=== PATIENT | male | born 1935 | race Caucasian/White ===

== ENCOUNTER 2016-10-14 20:19 | Inpatient (IN) | payer OTHER ==
[~2016-10-14] VITALS: Ht 172.7 cm; Wt 89.3 kg
--- NOTE | ~2016-10-14 | EKG ---
[address] [address] ELECTROCARDIOGRAM REPORT Name: LUIS A CHACON Room #: 463-P ADM IN M.R.#: [id number] Admission: 10/14/16 Attend Phys: Arabella Hayes Discharge: Date of : 35 Report #: [id number] THIS REPORT FOR: //name// [facility] ED Test Date: 2016-10-14 Test Time: 21:18:31 Pat Name: LUIS A CHACON Department: Room: 463 Gender: M Chief Gauger: JORGE L : 1935 Requested By: Lucia Wilder Order Number: [id number] MD: Arnel Valerio Measurements Intervals [place] Rate: 127 P: CT: QRS: -37 QRSD: 105 T: 153 QT: 341 QTc: 496 Interpretive Statements Atrial fibrillation Ventricular premature complex Left axis deviation Abnormal T, consider ischemia, lateral leads Electronically Signed On 10-17-2016 8:32:15 CDT by Arnel Valerio [email or web address] <ELECTRONICALLY SIGNED> By: Arnel Valerio MD 10/17/16 0832 2118 MD CY Inman
--- NOTE | ~2016-10-14 | 2DMMODE ---
[facility] [address] [facility] [place] [address] 2 D/M-MODE ECHOCARDIOGRAM Name: LUIS A CHACON Room #: 463-P [facility] IN ..#: [id number] Admission: 10/14/16 Attend Phys: Arabella Kingsley Discharge: Date of : 35 Date of Service: 10/20/16 1626 Report #: [id number] THIS REPORT FOR: //name// APPROVED REPORT Study performed: 10/20/2016 12:23:10 EXAM: Comprehensive 2D, Doppler, and color-flow Echocardiogram Patient Location: Bedside Room #: 463 Blood Pressure: 121/71 mmHg Other Information Study Quality: Good Indications Diabetes Atrial Fibrillation CAD Hypertension/HDD 2D Dimensions RVDd: 34.75 mm LVEF(%): 42.16 (>50%) IVSd: 14.48 (7-11mm) LVOT Diam: 23.09 (18-24mm) LVDd: 45.69 mm PWd: 13.49 (7-11mm) Ascending Ao: 26.67 (22-36mm) LVDs: 36.27 (25-40mm) Aortic Root: 25.93 mm IVC: 23.00 mm Hamilton's LVEF: 42.16 % Volumes Left Atrial Volume (Systole) Single Plane 4CH: 67.13 mL Single Plane 2CH: 72.76 mL LA ESV Index: 37.00 mL/m2 Aortic Valve AoV Peak Rizwan.: 1.85 m/s AO Peak Gr.: 13.62 mmHg LVOT Max P.92 mmHg LVOT Max V: 0.99 m/s LETICIA Vmax: 2.24 cm2 Mitral Valve [facility] [address] [place] [address] 2 D/M-MODE ECHOCARDIOGRAM Name: LUIS A CHACON Antonio Room #: 463-P ADM IN ..#: [id number] Admission: 10/14/16 Attend Phys: Arabella Kingsley Discharge: Date of : 35 Date of Service: 10/20/16 1626 Report #: [id number] MV Decel. Time: 260.19 ms MV E Max Rizwan.: 0.80 m/s Pulmonary Valve PV Peak Rizwan.: 1.02 m/s PV Peak Gr.: 4.18 mmHg Tricuspid Valve RAP Estimate: 10.00 mmHg Left Ventricle The left ventricle is normal size. Mild concentric left ventricular hypertrophy. LVEF is 50%. This study is not technically sufficient to allow evaluation of the LV diastolic function due to atrial fibrillation. Right Ventricle The right ventricle is normal size. The right ventricular systolic function is normal. Atria Left atrium is mildly dilated. Interatrial septum not well visualized. Right atrium is mildly dilated. Aortic Valve The aortic valve is normal in structure. No aortic regurgitation is present. There is no aortic valvular stenosis. Mitral Valve The mitral valve is normal in structure. Trace mitral regurgitation. No evidence of mitral valve stenosis. Tricuspid Valve The tricuspid valve is normal in structure. Trace tricuspid regurgitation. Pulmonic Valve The pulmonary valve is normal in structure. Trace to mild pulmonic regurgitation. Great Vessels The aortic root is normal in size. The ascending aorta is normal in size. Aortic arch is not visualized. IVC is slightly dilated and appears to collapse with normal respirations. <Conclusion> The left ventricle is normal size. [facility] [place] [place] [address] 2 D/M-MODE ECHOCARDIOGRAM Name: LUIS A CHACON Room #: 463-P [facility] IN M.R.#: [id number] Admission: 10/14/16 Attend Phys: Arabella Kingsley Discharge: Date of : 35 Date of Service: 10/20/161625 Report #: [id number] Mild concentric left ventricular hypertrophy. LVEF is 50%. Left atrium is mildly dilated. Right atrium is mildly dilated. The aortic valve is normal in structure. The mitral valve is normal in structure. Trace mitral regurgitation. The tricuspid valve is normal in structure. The pulmonary valve is normal in structure. Trace to mild pulmonic regurgitation. <ELECTRONICALLY SIGNED> By: Bebeto Mena MD 10/20/161625 25 1626 Bebeto Mena MD /INF
--- NOTE | ~2016-10-14 | H ---
[facility] [place] [address] HISTORY AND PHYSICAL Name: OSWALDOLUIS A Room #: 463-P [facility] IN M.R.#: [id number] Admission: 10/14/16 Attend Phys: Arabella Hayes Discharge: Date of : 35 Report #: [id number] THIS REPORT FOR: //name// CC: Arabella Acosta Abraham DATE OF SERVICE: 10/14/2016 ATTENDING PHYSICIAN: Arabella Hayes M.D. PRIMARY CARE PHYSICIAN: Alexandra Brownlee M.D. CHIEF COMPLAINT: Hip pain. HISTORY OF PRESENT ILLNESS: The patient is an 81-year-old male with advanced dementia who lives at [facility]. Apparently, he had a fall yesterday and landed on his right hip, but was able to get up and ambulate to dinner. After dinner, they tried to have him stand up, and he could not walk and was grimacing. He is mostly nonverbal. An x-ray was done at the facility, which showed a right hip fracture, so he was brought into the ER. This was a witnessed fall. He did not hit his head or lose consciousness. His is with him, is answering all the questions. He has had increasing weakness in the last 3-6 months and has had another 8 to 10 falls during that timeframe that have been non-injury falls. He did not sustain any other injuries in the fall last night. In the ER, he was evaluated and noted to have atrial fibrillation with RVR. His states he has a history of paroxysmal atrial fibrillation and did not think that he has been in AFib for many years. He is currently resting comfortably in bed, remains nonverbal. PAST MEDICAL HISTORY: Atrial fibrillation, diabetes, hypertension, hypothyroidism, advanced Alzheimer's disease, hyperlipidemia, anxiety, depression, chronic kidney disease stage 3 and prostate cancer. PAST SURGICAL HISTORY: Prostatectomy, bilateral lens implant and pilonidal cyst drainage. ALLERGIES: None. HOME MEDICATIONS: Depakote 125 mg daily, lisinopril 20 mg b.i.d., Citrucel daily, amlodipine 5 mg p.o. daily, aspirin 81 mg p.o. daily, fish oil 1000 mg p.o. daily, Synthroid 0.05 mg p.o. daily, Celexa 20 mg p.o. daily, Levemir insulin 33 units every day and hydrocodone p.r.n., Seroquel 25 mg p.o. b.i.d., alprazolam 0.5 mg every 8 hours p.r.n. and Lasix 40 mg p.o. daily. ALLERGIES: NONE. [address] [address] HISTORY AND PHYSICAL Name: LUIS A CHACON Room #: 463-P [facility] IN M.R.#: [id number] Admission: 10/14/16 Attend Phys: Aarbella Hayes Discharge: Date of : 35 Report #: [id number] SOCIAL HISTORY: The patient is currently living at [facility]. He is nonverbal. He is able to feed himself with some assistance but cannot use silverware. Just eats mostly finger foods. He is incontinent of bowel and bladder. He was a heavy drinker in the past, but quit this 20 years ago. He has a remote history of smoking cigarettes and cigars as well but, again, quit this many years ago. He is , and his visit him daily at [facility]. FAMILY HISTORY: Significant for diabetes, cancer and Alzheimer's. REVIEW OF SYSTEMS: Unobtainable due to altered mental status. PHYSICAL EXAMINATION: GENERAL: The patient is an alert, nonverbal male, in no acute distress. VITAL SIGNS: Temperature is 36.8, heart rate 116, respirations 17, blood pressure is 153/87 and oxygen 97% on room air. HEENT: PERRLA. Sclerae are nonicteric. Oral mucosa is pink and dry. His lips are cracked. NECK: No JVD noted. CARDIOVASCULAR: Heart rate is irregular, but no murmurs, rubs or gallops. RESPIRATORY: Breath sounds are clear bilaterally. No wheezing or rhonchi. Breathing is nonlabored. ABDOMEN: Round, soft, nontender and nondistended with positive bowel sounds. VASCULAR: Bilateral lower extremity edema 2+. Pedal pulses are 2+. NEUROLOGIC: The patient is alert. He is nonverbal. He will not track with his eyes. He does not follow any commands. He is somewhat fidgety and has bilateral upper extremity tremors. He does not change facial expressions. There is no facial asymmetry. MUSCULOSKELETAL: He would not follow commands, but he did have some point tenderness to his right hip. No significant erythema or ecchymosis. LABORATORY DATA AND DIAGNOSTICS: WBC is 15.7, hemoglobin 13.2 and platelets 190. Sodium is 138, potassium 5.1, BUN 35, creatinine 1.7 and glucose 221. LFTs are within normal limits. INR 1.1. X-ray showed an acute comminuted right intertrochanteric femur fracture, and chest x-ray showed stable cardiomegaly without acute cardiopulmonary disease. EKG showed atrial fibrillation with RVR and some PVCs. ASSESSMENT AND PLAN: 1. Right hip fracture. The patient has been admitted for surgical evaluation. We will await orthopedic recommendations. Continue pain medication based on his cues since he is nonverbal, keep him n.p.o. 2. Atrial fibrillation with rapid ventricular response. Rate is controlled on the Cardizem drip, which we will continue and wean off when able based on his heart rate. We will resume his home medications once he is able to take p.o. [facility] [address] [place] [address] HISTORY AND PHYSICAL Name: LUIS A CHACON Room #: 463-P [facility] IN .R.#: [id number] Admission: 10/14/16 Attend Phys: Arabella Hayes Discharge: Date of : 35 Report #: [id number] He is not on any anticoagulation because of his falls. 3. Advanced dementia. The patient is at his baseline according to his . He is a Do Not Resuscitate. 4. Chronic kidney disease stage III. Creatinine is stable according to previous labs. 5. Diabetes. Blood sugar is elevated. We will add sliding scale insulin and Accu-Cheks. 6. Hypertension. Blood pressure is stable. Resume home meds when able to take p.o. 7. Deep vein thrombosis prophylaxis. Anticoagulation per Ortho postop. We will continue to follow the patient closely throughout the hospitalization and make changes based on clinical status. <ELECTRONICALLY SIGNED> By: KEITH Simon 10/20/16 0109 0932 1220 KEITH Simon /nt
--- NOTE | ~2016-10-14 | O ---
[facility] [place] [address] [address] [place] [address] OPERATIVE REPORT Name: LUIS A CHACON Antonio Room #: 463-P [facility] IN ..#: [id number] Admission: 10/14/16 Attend Phys: Arabella Hayes Discharge: Date of : 35 Report #: [id number] THIS REPORT FOR: //name// CC: Arabella Marie DATE OF SERVICE: 10/16/2016 PREOPERATIVE DIAGNOSIS: Right subtrochanteric hip fracture. POSTOPERATIVE DIAGNOSIS: Right subtrochanteric hip fracture. PROCEDURE: Treatment of right subtrochanteric hip fracture with an IM nail. SURGEON: Dave Marie MD. SPECIAL ORDER JEWELER: Munira Cao PA-C. ANESTHESIA: General endotracheal. IMPLANTS: [employer] size 10 short InterTAN nail with a size 90/85 lag screw and a 32.5 distal locking screw. ESTIMATED BLOOD LOSS: 50 mL. COMPLICATIONS: None. SPECIMENS: None. CONDITION UPON LEAVING THE OPERATING ROOM: Stable. INDICATIONS FOR PROCEDURE: The patient is an 81-year-old gentleman who fell at his care unit, sustained a right subtrochanteric hip fracture. After discussion with he and his family, they elected for treatment with an IM nail. DESCRIPTION OF PROCEDURE: Risks, benefits, alternatives, complications were discussed in detail with the patient including, but not limited to risk of anesthesia, risk of damage to nerves, arteries, blood vessels, risk for infection, bleeding, risk for continued hip pain, malunion, nonunion and need for reoperation. Informed consent was obtained from the patient's who is the DPOA. Right hip was appropriately marked in the preoperative holding area. IV Ancef was given for preoperative antibiotics. He was brought to the operating room and general endotracheal anesthesia was induced without complication. He had been transferred to the [place] table and right lower extremity was placed in traction. The right hip and lower extremity were [facility] [address] [place] [address] OPERATIVE REPORT Name: OSWALDOLUIS A Room #: 463-P [facility] IN [facility].#: [id number] Admission: 10/14/16 Attend Phys: Arabella Hayes Discharge: Date of : 35 Report #: [id number] prepped and draped in normal sterile fashion. Timeout was performed properly identifying the patient and procedure as well as the instrumentation and implants. All in the operating room were in agreement. Then, with medial displacement of the distal fragment on his fluoroscopic imaging and so, a lateral incision was made over the thigh and a [place] elevator was used to dissect over the anterior cortex of the femur. A bone hook was then placed on the medial aspect of the femur to help to hold the fracture in better reduction. A 2-inch incision proximal to the greater trochanter was made through the skin and fascia and threaded tip guidewire was placed on the tip of the greater trochanter and taken down to the level of the lesser trochanter under AP and lateral images. Intraportal reamer was used to ream the entry portal. The canal was then sequentially reamed up to a size 13 and a 11.5 InterTAN nail was attempted to pass down across the fracture site; however, there was significant resistance and it did appear that there was a small piece of a probable cortical bone, right at the lesser trochanteric level medially. We decided to go with the smaller nail at this point, so a 10 short InterTAN nail was then placed down across the fracture site. This did pass much more easily; however, there was a mild displacement of the fracture. However, given his functional status and other comorbidity, it was felt that this was acceptable and so the lag screw for the InterTAN was placed. This was incised to 90 with size 85 compression screw. After this, 1 distal locking screw in the dynamic slot was placed. Final fluoroscopic images were taken to verify adequate fracture reduction and placement of hardware. Wound was thoroughly irrigated with normal saline and closed with 2-0 Vicryl and skin staple and an Aquacel dressing was applied. The patient tolerated this procedure well and went to the recovery room under the care of anesthesia postoperatively. <ELECTRONICALLY SIGNED> By: Dave Marie MD 10/18/16 0727 1036 1201 Dave Marie MD /nt
[~2016-10-14 20:19] MED LIST: ALDACTONE25 MG PO; AMLODIPINE BESYL5 MG PO; ASPIRIN81 M2 PO; CELEXA 20 MG TA20 M1 PO; CELEXA 20 MG TA20 MG PO; CITRUCEL500 MG PO; HYDROCHLOROTHIA25 M1 PO; HYDROCODON-ACE1 EAC8 PO; INSULIN; LASIX 40 MG TAB40 M2 PO; LEVEMIR SUBQ; LEVOTHYROXINE0.05 MG PO; LISINOPRIL20 MG PO; NAMENDA 10 MG T10 MG PO; NAMENDA XR28 MG PO; OMEGA-31000 M1 PO; PRAVASTATIN SOD40 MG PO; SEROQUEL 25 MG25 M1 PO; TOPROL XL100 MG PO; VITAMIN D1000 UNI1 PO; XANAX 0.5 MG0.5 MG PO
[2016-10-14 20:21] VITALS: BP 153/87
[2016-10-14] MEDS ORDERED: DIVALPROEX SOD125 MG PO (20:41)
[2016-10-14 21:13] LABS: HEMATOCRIT 39.5 % (42.0-52.0); HEMOGLOBIN 13.2 gm/dL (14.0-18.0); MCH 30.2 pg (26.0-34.0); MCHC 33.4 g/dL (28.0-37.0); MCV 90.4 fL (80.0-100.0); PLATELET COUNT 190 thou/uL (150-400); RBC 4.36 mil/uL (4.50-6.00); WBC 15.7 thou/uL (4.0-11.0)
[2016-10-14 21:17] LABS: MANUAL DIFF YES
[2016-10-14 21:24] LABS: INR 1.1; PROTIME 11.5 Seconds (9.3-11.4)
[2016-10-14 21:31] LABS: CALCIUM 8.7 mg/dL (8.5-10.1); CREATININE 1.7 mg/dL (0.7-1.3); POTASSIUM 5.1 mmol/L (3.5-5.1)
[2016-10-14 21:35] LABS: ALBUMIN 3.8 g/dL (3.4-5.0); TOTAL BILIRUBIN 0.4 mg/dL (<0.1-1.0); TOTAL PROTEIN 7.6 g/dL (6.4-8.2)
[2016-10-14 21:38] LABS: ABSOLUTE NEUTROPHILS 14.1 thou/uL (1.4-8.2); TOTAL CELL COUNT 100
[2016-10-14 22:51] VITALS: BP 148/89
[2016-10-14 23:53] VITALS: BP 153/89
[2016-10-15 04:00] VITALS: BP 127/91
[2016-10-15 07:52] VITALS: BP 141/70
[2016-10-15 12:29] VITALS: BP 138/80
[2016-10-15 16:45] VITALS: BP 153/69
[2016-10-15 20:59] VITALS: BP 128/86
[2016-10-16] VITALS (13 sets, daily range): BP systolic 95–145; BP diastolic 60–84
[2016-10-16 05:33] LABS: HEMATOCRIT 31.3 % (42.0-52.0); HEMOGLOBIN 10.6 gm/dL (14.0-18.0); MCH 30.6 pg (26.0-34.0); MCHC 33.8 g/dL (28.0-37.0); MCV 90.6 fL (80.0-100.0); PLATELET COUNT 175 thou/uL (150-400); RBC 3.46 mil/uL (4.50-6.00); RDW 14.2 % (10.5-14.5); WBC 14.8 thou/uL (4.0-11.0)
[2016-10-16 05:34] LABS: MANUAL DIFF YES
[2016-10-16 05:53] LABS: ALBUMIN 3.3 g/dL (3.4-5.0); CALCIUM 8.7 mg/dL (8.5-10.1); CREATININE 1.4 mg/dL (0.7-1.3); POTASSIUM 4.7 mmol/L (3.5-5.1); TOTAL BILIRUBIN 0.4 mg/dL (<0.1-1.0); TOTAL PROTEIN 6.9 g/dL (6.4-8.2)
[2016-10-16 09:43] LABS: ABSOLUTE NEUTROPHILS 10.8 thou/uL (1.4-8.2); METAMYELOCYTES 2 %; TOTAL CELL COUNT 100
[2016-10-16 09:44] LABS: ANISOCYTOSIS SLIGHT
[2016-10-17] VITALS (8 sets, daily range): BP systolic 113–1139; BP diastolic 54–86
[2016-10-17 07:28] LABS: HEMATOCRIT 24.8 % (42.0-52.0); MCHC 34.2 g/dL (28.0-37.0); MCV 90.7 fL (80.0-100.0); RBC 2.74 mil/uL (4.50-6.00); WBC 10.9 thou/uL (4.0-11.0)
[2016-10-17 07:31] LABS: HEMOGLOBIN 8.5 gm/dL (14.0-18.0)
[2016-10-17 07:39] LABS: CALCIUM 8.3 mg/dL (8.5-10.1); CREATININE 1.3 mg/dL (0.7-1.3); POTASSIUM 3.9 mmol/L (3.5-5.1)
[2016-10-18] VITALS (7 sets, daily range): BP systolic 102–152; BP diastolic 49–72
[2016-10-18 06:23] LABS: HEMATOCRIT 25.7 % (42.0-52.0); HEMOGLOBIN 8.5 gm/dL (14.0-18.0); MCH 30.5 pg (26.0-34.0); MCHC 33.1 g/dL (28.0-37.0); MCV 92.2 fL (80.0-100.0); RBC 2.79 mil/uL (4.50-6.00); WBC 10.5 thou/uL (4.0-11.0)
[2016-10-19 04:45] VITALS: BP 147/67
[2016-10-19 08:00] VITALS: BP 123/78
[2016-10-19 11:11] VITALS: BP 125/69
[2016-10-19 16:04] VITALS: BP 133/75
[2016-10-19 20:00] VITALS: BP 109/58
[2016-10-20] VITALS (10 sets, daily range): BP systolic 107–145; BP diastolic 56–77
[2016-10-21 06:04] VITALS: BP 139/59
[2016-10-21 06:53] LABS: ABSOLUTE NEUTROPHILS 8.2 thou/uL (1.4-8.2); BASOPHILS 0.4 % (0.0-2.0); EOSINOPHILS 2.1 % (0.0-3.0); HEMATOCRIT 24.3 % (42.0-52.0); HEMOGLOBIN 8.2 gm/dL (14.0-18.0); LYMPHOCYTES 9.3 % (24.0-44.0); MCH 30.2 pg (26.0-34.0); MCHC 33.6 g/dL (28.0-37.0); MCV 89.9 fL (80.0-100.0); MONOCYTES 7.8 % (1.0-8.0); PLATELET COUNT 222 thou/uL (150-400); POLYS 80.4 % (36.0-66.0); RDW 13.5 % (10.5-14.5); WBC 10.1 thou/uL (4.0-11.0)
[2016-10-21 06:56] LABS: MANUAL DIFF NO
[2016-10-21 06:59] LABS: CALCIUM 8.1 mg/dL (8.5-10.1); CREATININE 1.1 mg/dL (0.7-1.3); POTASSIUM 3.8 mmol/L (3.5-5.1)
[2016-10-21 08:19] VITALS: BP 136/88
[2016-10-21 11:00] VITALS: BP 124/56
[2016-10-21 15:15] VITALS: BP 139/61
[2016-10-21 15:36] VITALS: BP 124/57; BP 134/65
[2016-10-21 20:05] VITALS: BP 133/58
[2016-10-22 04:27] VITALS: BP 135/77
[2016-10-22 08:07] VITALS: BP 161/95
[2016-10-22] MEDS ORDERED: HYDROCODON-ACE1 EAC8 PO (11:28)
[2016-10-22] MEDS ORDERED: ATENOLOL 25 MG25 M1 PO (11:28)
[2016-10-22] MEDS ORDERED: CARDIZEM CD240 MG PO (11:28)
[2016-10-22] MEDS ORDERED: ACCUPRIL40 MG PO (11:28)
[2016-10-22] MEDS ORDERED: ENOXAPARIN30 MG/0.1 SUBQ (11:37)
[2016-10-22 12:34] VITALS: BP 102/58
[2016-10-22 12:44] VITALS: BP 102/58
[2016-10-22 13:19] VITALS: BP 102/58
== END 2016-10-22 14:58 | DRG 480 ==
LOC: ER 20:19 → EROBS 21:27 → 4W 21:27
PROVIDERS: Family Medicine; Hospitalist; Nurse Practitioner Family; Orthopaedic Surgery
PROC: 0QH606Z Insertion of Intramedullary Internal Fixation Device into Right Upper Femur, Open Approach (ICD-10-PCS; principal; 2016-10-16)
PROC: 30233N1 Transfusion of Nonautologous Red Blood Cells into Peripheral Vein, Percutaneous Approach (ICD-10-PCS; 2016-10-21)
DX: S72.21XA Displaced subtrochanteric fracture of right femur, initial encounter for closed fracture (principal); N17.0 Acute kidney failure with tubular necrosis; N17.9 Acute kidney failure, unspecified; F02.81 Dementia in other diseases classified elsewhere, unspecified severity, with behavioral disturbance; E46 Unspecified protein-calorie malnutrition; S72.001A Fracture of unspecified part of neck of right femur, initial encounter for closed fracture; G30.9 Alzheimer's disease, unspecified; E78.5 Hyperlipidemia, unspecified; F41.9 Anxiety disorder, unspecified; F32.9 Major depressive disorder, single episode, unspecified; E03.9 Hypothyroidism, unspecified; Z96.1 Presence of intraocular lens; D72.829 Elevated white blood cell count, unspecified; I25.10 Atherosclerotic heart disease of native coronary artery without angina pectoris; I48.0 Paroxysmal atrial fibrillation; E11.649 Type 2 diabetes mellitus with hypoglycemia without coma; Z68.29 Body mass index [BMI] 29.0-29.9, adult; D64.9 Anemia, unspecified; N18.3 Chronic kidney disease, stage 3 (moderate); E11.22 Type 2 diabetes mellitus with diabetic chronic kidney disease; I12.9 Hypertensive chronic kidney disease with stage 1 through stage 4 chronic kidney disease, or unspecified chronic kidney disease; Z79.4 Long term (current) use of insulin; Z85.46 Personal history of malignant neoplasm of prostate; Z80.9 Family history of malignant neoplasm, unspecified; Z83.3 Family history of diabetes mellitus; Z81.8 Family history of other mental and behavioral disorders; I25.2 Old myocardial infarction; Z79.82 Long term (current) use of aspirin; Z79.899 Other long term (current) drug therapy; W18.39XA Other fall on same level, initial encounter; Y93.89 Activity, other specified; Y92.89 Other specified places as the place of occurrence of the external cause; Y99.8 Other external cause status
CPT/HCPCS: 10045; 50101; 50386; 51412; 51538; 55445; 57092; 62110; 62900; 70005